=== PATIENT | male | born 1985 | race Two or more races ===

== ENCOUNTER 2021-12-14 15:08 | Emergency (ER) | payer SELFPAY ==
[~2021-12-14] VITALS: Ht 175.3 cm; Wt 72.6 kg
[2021-12-14] MEDS ORDERED: PROCHLORPERAZINE EDISYLATE 5 MG/ML 2ML VIAL IV ONE (15:30)
[2021-12-14] MEDS ORDERED: diphenhdrAMINE HCL 25 MG CAP PO ONE (15:30)
[2021-12-14] MEDS ORDERED: DexAMETHasone SOD PHOS 10MG/1ML VIAL INJ IV ONE (15:30)
[2021-12-14] MEDS ORDERED: SODIUM CHLORIDE 0.9% 1,000 ML IV ONE (15:30)
[2021-12-14] MEDS ORDERED: ONDANSETRON ODT 4 MG TAB PO ONE (15:45)
[2021-12-14] MEDS ORDERED: DexAMETHasone SOD PHOS 10MG/1ML VIAL INJ IM ONE (15:45)
[2021-12-14] MEDS ORDERED: OXYM-20 (16:56)
[2021-12-14] MEDS ORDERED: PSEU1TAB26 PO (16:56)
[2021-12-14 17:46] VITALS: BP 139/93
== END 2021-12-14 17:54 | disposition home or self-care (01) ==
LOC: ER 15:08
DX: J06.9 Acute upper respiratory infection, unspecified (principal); Z20.822 Contact with and (suspected) exposure to COVID-19
CPT/HCPCS: 36415; 87426; 96372; 99283; J1100; J7030; 96360; Q0162